=== PATIENT | male | born 1935 | race Caucasian/White ===

== ENCOUNTER 2016-08-04 10:33 | Emergency (ER) | payer BC ==
[~2016-08-04] VITALS: Ht 180.3 cm; Wt 65.8 kg
[~2016-08-04 10:33] MED LIST: APIX5TAB PO; ASPI81TA82 PO; DILTCD240 PO; FURO20 PO; METO50TA PO
[2016-08-04 11:02] VITALS: BP 97/65; PULSE 80; RESP 16; TEMP 97.5; O2SAT 100
--- NOTE | 2016-08-04 11:28 | PD ---
HPI Chief Complaint: ENT Complaint Time Seen by Provider: 11:27 Travel History International Travel<30 days: No Contact w/Intl Traveler<30days: No Traveled to known affect area: No History of Present Illness HPI 80-year-old man presents to the emergency Department with decreased hearing and fullness in the right ear. Patient wears hearing aid. He does not have any pain. He has no other complaints. He has history of cerumen impaction in the past. He has no known drug allergies. 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 ) Genitourinary: No Hepatitis: No Hiatal Hernia: No Immune Disorder: No Musculoskeletal: No Neurologic: No Psychiatric: No Reproductive: No Respiratory: No Immunizations Current: Yes Thyroid Disease: No Past Surgical History Abdominal Surgery: Yes (bowel obstruction) Body Medical Devices: WALL STENT (RECTO COLON) Cardiac Surgery: No Ear Surgery: No Endocrine Surgery: No Eye Surgery: No Genitourinary Surgery: No Gynecologic Surgery: No Joint Replacement: No Oral Surgery: No Pacemaker: No Thoracic Surgery: No Social History Alcohol Use: Yes (occas) Tobacco Use: No Substance Use: No Allergies-Medications (Allergen,Severity, Reaction): Coded Allergies: No Known Allergies (Unverified , 08/04/16) Reported Meds & Prescriptions Reported Meds & Active Scripts Active Review of Systems General / Constitutional: No: Fever Eyes: No: Visual changes HENT: Positive: Other (decreased hearing and left ear.), No: Headaches Cardiovascular: No: Chest Pain or Discomfort Respiratory: No: Shortness of Breath Gastrointestinal: No: Abdominal Pain Genitourinary: No: Dysuria Musculoskeletal: No: Pain Skin: No Rash Neurologic: No: Weakness Psychiatric: No: Depression Endocrine: No: Polydipsia Hematologic/Lymphatic: No: Easy Bruising Physical Exam Narrative GENERAL: Patient appears in no acute distress. SKIN: Warm and dry. HEAD: Atraumatic. Normocephalic. EYES: Pupils equal and round. No scleral icterus. No injection or drainage. ENT: No nasal bleeding or discharge. Mucous membranes pink and moist. Right ear canal is unremarkable. TMs clear. Left ear canal is clotted with cerumen impaction. Ear irrigation is performed with resolution of symptoms. TM appears normal. NECK: Trachea midline. Supple nontender. CARDIOVASCULAR: Regular rate and rhythm. RESPIRATORY: No accessory muscle use. MUSCULOSKELETAL: Extremities without clubbing, cyanosis, or edema. No obvious deformities. NEUROLOGICAL: Awake and alert. No obvious cranial nerve deficits. Motor grossly within normal limits. Five out of 5 muscle strength in the arms and legs. Normal speech. PSYCHIATRIC: Appropriate mood and affect; insight and judgment normal. Data Data Last Documented VS Vital Signs Date Time Temp Pulse Resp B/P Pulse Ox O2 Delivery O2 Flow Rate FiO2 08/04/16 11:02 97.5 80 16 97/65 100 MDM Medical Decision Making Medical Screen Exam Complete: Yes Emergency Medical Condition: Yes Differential Diagnosis Otitis media. Perforated TM. Cerumen impaction. Narrative Course Patient is medically stable at time of exam. Ear lavage is performed with resolution of symptoms. No sign of infection or TM perforation is noted. Patient will follow-up as needed. Diagnosis Primary Impression: Impacted cerumen of left ear Patient Instructions: Cerumen Impaction (ED), General Instructions Additional Instructions: Ear lavage is performed with resolution of symptoms. No sign of infection or TM perforation is noted. Patient will follow-up as needed. Med/Other Pt SpecificInfo: No Meds Exist/No RX given Disposition: 01 DISCHARGE HOME Condition: Stable Jethro Rodriguez August 04, 2016 11:28
[2016-08-04] MEDS ORDERED: ASPI-110 PO (11:39)
[2016-08-04] MEDS ORDERED: DILT-64 PO (11:39)
[2016-08-04] MEDS ORDERED: APIX5TAB PO (11:39)
[2016-08-04] MEDS ORDERED: METO25TA3 PO (11:39)
== END 2016-08-04 11:54 | disposition home or self-care (01) ==
LOC: PHEFT 10:33
DX: H61.22 Impacted cerumen, left ear (principal); I48.91 Unspecified atrial fibrillation; I50.9 Heart failure, unspecified
CPT/HCPCS: 99282

== ENCOUNTER 2017-08-09 09:46 | Emergency (ER) | END 2017-08-09 10:57 | disposition home or self-care (01) | DX: H61.23 Impacted cerumen, bilateral (principal); I48.91 Unspecified atrial fibrillation; Z79.01 Long term (current) use of anticoagulants; Z86.79 Personal history of other diseases of the circulatory system; Z87.19 Personal history of other diseases of the digestive system ==